=== PATIENT | female | born 1940 | race Caucasian/White ===

== ENCOUNTER 2020-03-05 08:19 | Emergency (ER) | payer MEDICARE, MEDICAID, SELFPAY ==
[2020-03-05 08:29] VITALS: BP 164/61; PULSE 61; TEMP 36.7; O2SAT 98
[2020-03-05 08:40] VITALS: PULSE 61; RESP 16; O2SAT 98; BMI 24.0
--- NOTE | 2020-03-05 09:18 | ED_ITS ---
HPI - General Adult General Chief complaint: General Medical Stated complaint: diabetic feet purplish Time Seen by Provider: 03/05/20 08:34 Source: patient and family Mode of arrival: ambulatory Limitations: language barrier (Icelandic-speaking) History of Present Illness HPI narrative: 79yoF c PMHx of eczema, DM, melanoma and kidney atrophy presenting to the ED c c/o worsening eczema rash to bilateral feet and neck with redness and she is concerned about her circulation. Reports that she has a dermatology appointment on . Denies any other symptom complaints or concerns. Denies any fevers, chills or any injuries. Related Data Previous Rx's Medication Instructions Recorded cephalexin [Keflex] 500 mg PO Q6H 10 Days #40 cap 03/05/20 doxycycline monohydrate 100 mg PO BID 10 Days #20 cap 03/05/20 hydrocortisone 1 appl TOPICAL TID PRN #454 g 03/05/20 prednisone 40 mg PO DAILY 5 Days #10 tab 03/05/20 Allergies Allergy/AdvReac Type Severity Reaction Status Date / Time No Known Allergies Allergy Unverified 12/09/19 15:35 [No Known Allergies*] Review of Systems Review of Systems: Constitutional : No Fever, No Chills , no body aches, no recent illness Head/Face: No facial swelling, No facial redness ENT/Mouth : No oral/throat swelling, No Hoarseness, No Swallowing Difficulty Eyes: No Eye Pain, No Swelling, No Redness Cardiovascular : No Chest Pain, No SOB, No palpitations Respiratory : No Cough, No Sputum, No Wheezing, No Smoke Exposure, No Dyspnea Gastrointestinal : No Nausea, No Vomiting, No Diarrhea, No abdominal Pain Genitourinary : No Dysuria, No Urinary Frequency, No Hematuria Musculoskeletal : No joint pain, No Myalgias, No Joint Swelling Skin : No Skin Lesions, positive rash Neuro : No Weakness, No Numbness, No Headache, No dizziness, No tingling Psych : No Anxiety/Panic, No Depression Heme/Lymph: No Bruising, No Lymphadenopathy Endocrine : No Polyuria, No Polydipsia Denies changes in lotions or detergents. Denies new medications or any changes in medications. Denies drainage from rash. Denies any recent sick contacts or recent travel. Yes all other systems are reviewed and are negative PMFSH Past Medical History Attestation statement: The following information was validated with the patient. Medical History Diabetes Eczema Kidney atrophy Melanoma Social History Social History Advance Directives: No Advance Directives Information Provided: No Physical Exam Vital Signs: Vital Signs: Last Vital Signs Temp 98.1 F 03/05/20 08:29 Pulse 61 03/05/20 08:40 Resp 16 03/05/20 08:40 BP 164/61 H 03/05/20 08:29 Pulse Ox 98 03/05/20 08:40 Body Mass Index 24.0 vital signs have been reviewed as normal and appeared to be correct. Blood pressure normal. Heart rate normal. Respiration rate normal. Temperature normal. Oxygen saturation normal. Appearance: Alert. Oriented X3. No acute distress. Head: Normal external exam. Normocephalic. Atraumatic. Eyes: PERRLA. EOMI. Conjunctiva and sclera normal. Eyelids normal. ENT: Pharynx normal. Uvula midline. Moist mucous membranes. Neck: Normal inspection. Neck supple. FROM. No adenopathy. No meningeal signs. CVS: Normal heart rate and rhythm. Heart sound normal. No murmurs noted. Pulses normal throughout. Respiratory: No respiratory distress. Painless inspiration. Breath sounds normal. No wheezes/rales/rhonchi noted. Chest nontender. No accessory muscle usage noted or decreased air movement noted. Abdomen: Soft and nontender. Bowel sounds normal in all 4 quadrants. No distention noted. No organomegaly noted. No visible injury noted. Back: Full range of motion noted. Skin: Skin warm and dry. Normal skin color. Normal skin turgor. No lesions/lacerations noted. Eczema rash to bilateral dorsum of the feet and to the neck. With moderate erythema no streaking/induration/fluctuance or drainage noted. Extremities: Extremities exhibit normal range of motion. Extremities nontender. Neuro: Oriented X 3. No motor deficit. No sensory deficit. Reflexes normal. Course Course Course Narrative: Patient with worsening eczema rash with possible cellulitis. No signs of streaking or fluctuance noted. Patient has positive pulses on her feet. No calf tenderness or swelling. Not consistent with DVT or vascular or arterial insufficiency. No imaging indicated at this time. Will DC home with antibiotics and topical steroids along with oral steroids. Explained to the patient to not take the oral steroids until she has tried the topical steroids and antibiotics for at least a week and to follow-up with her alteration inspector as scheduled. I also informed this to her daughter who was in the waiting room she understands and agrees with this plan. Will discharge at this time. Medical Decision Making Medical Records Medical records reviewed: Yes I reviewed the patient's medical records. Discharge Plan Discharge Clinical Impression: Eczema, Cellulitis Patient Disposition: Home, Self-Care Instructions: Cellulitis (ED), Eczema (ED) Prescriptions: New doxycycline monohydrate 100 mg capsule 100 mg PO BID 10 Days Qty: 20 RF: 0 cephalexin [Keflex] 500 mg capsule 500 mg PO Q6H 10 Days Qty: 40 RF: 0 hydrocortisone 2.5 % ointment 1 appl topical TID PRN (Reason: Eczema) Qty: 454 RF: 2 prednisone 20 mg tablet 40 mg PO DAILY 5 Days Qty: 10 RF: 0 Referrals: Vic Cortez MD [Primary Care Provider] - 2 days Print Language: Icelandic
== END 2020-03-05 10:00 | disposition home or self-care (01) ==
PROVIDERS: Emergency Provider Emergency Medicine; PCP Internal Medicine
DX: L03.116 Cellulitis of left lower limb (principal); L03.115 Cellulitis of right lower limb; L30.9 Dermatitis, unspecified; Z79.899 Other long term (current) drug therapy
CPT/HCPCS: 99283

== ENCOUNTER 2020-03-13 11:38 | Outpatient (REF) | payer MEDICARE, OTHER, SELFPAY ==
--- NOTE | 2020-03-13 11:44 | MM_ITS ---
EXAMINATION: MM SCREENING DIGITAL BREAST TOMOSYNTHESIS, BILATERAL CLINICAL INFORMATION: Screening. Asymptomatic. The lifetime risk of breast cancer based on the Tyrer-Cuzick Model is 2%. COMPARISON: Mammography: 08/11/2018, 07/22/2017, 07/16/2016 TECHNIQUE: Digital breast tomosynthesis is performed in both the craniocaudal and mediolateral oblique views along with computer-aided detection (CAD). Synthesized 2D images are generated from the tomosynthesis. Additional left MLO view is provided. FINDINGS: There are scattered areas of fibroglandular density (ACR BI-RADS breast composition Category b). There are no significant masses, abnormal calcifications, or other abnormalities. Parenchymal pattern is similar to prior studies. There is no developing density. Axillary nodes are stable. Skin contours are smooth. No significant changes. MM/MM tomosynthesis screening BI IMPRESSION: No significant changes from prior exams. ASSESSMENT: BI-RADS 1: Negative RECOMMENDATION: Routine annual mammography screening. This patient's information was entered into a reminder system with a target due date for their next mammogram.
== END 2020-03-13 11:39 | disposition home or self-care (01) ==
LOC: HO.MAMMO 11:38
PROVIDERS: PCP Internal Medicine; Visit Provider Internal Medicine
DX: Z12.31 Encounter for screening mammogram for malignant neoplasm of breast (principal)
CPT/HCPCS: 77063; 77067

== ENCOUNTER 2021-04-10 08:09 | Outpatient (REF) | payer MEDICARE, OTHER, SELFPAY ==
--- NOTE | ~2021-04-10 | MM_ITS ---
EXAMINATION: MM SCREENING DIGITAL BREAST TOMOSYNTHESIS, BILATERAL CLINICAL INFORMATION: Screening. Asymptomatic. The lifetime risk of breast cancer based on the Tyrer-Cuzick Model is 3%. COMPARISON: Mammography: 03/13/2020, 08/11/2018, 07/22/2017 TECHNIQUE: Digital breast tomosynthesis is performed in both the craniocaudal and mediolateral oblique views along with computer-aided detection (CAD). Synthesized 2D images are generated from the tomosynthesis. FINDINGS: There are scattered areas of fibroglandular density (ACR BI-RADS breast composition Category b). There are no significant masses, abnormal calcifications, or other abnormalities. MM/MM tomosynthesis screening BI IMPRESSION: No mammographic evidence of malignancy. ASSESSMENT: BI-RADS 1: Negative RECOMMENDATION: Routine annual mammography screening. This patient's information was entered into a reminder system with a target due date for their next mammogram.
== END 2021-04-10 08:10 | disposition home or self-care (01) ==
LOC: HO.MAMMO 08:09
PROVIDERS: Visit Provider Internal Medicine
DX: Z12.31 Encounter for screening mammogram for malignant neoplasm of breast (principal)
CPT/HCPCS: 77063; 77067

== ENCOUNTER 2022-04-16 08:10 | Outpatient (REF) | payer MEDICARE, OTHER, SELFPAY ==
--- NOTE | ~2022-04-16 | MM_ITS ---
EXAMINATION: MM SCREENING DIGITAL BREAST TOMOSYNTHESIS, BILATERAL CLINICAL INFORMATION: Screening. Asymptomatic. The lifetime risk of breast cancer based on the Tyrer-Cuzick Model is 3.0%. COMPARISON: Mammography: April 10, 2021 and studies dating back to July 14, 2015 TECHNIQUE: Digital breast tomosynthesis is performed in both the craniocaudal and mediolateral oblique views along with computer-aided detection (CAD). Synthesized 2D images are generated from the tomosynthesis. FINDINGS: The breasts are almost entirely fatty (ACR BI-RADS breast composition Category a). There are no significant masses, abnormal calcifications, or other abnormalities. MM/MM tomosynthesis screening BI IMPRESSION: No significant changes from prior exam. ASSESSMENT: BI-RADS 1: Negative RECOMMENDATION: Routine annual mammography screening. This patient's information was entered into a reminder system with a target due date for their next mammogram.
== END 2022-04-16 08:11 | disposition home or self-care (01) ==
LOC: HO.MAMMO 08:10
PROVIDERS: PCP Internal Medicine; Visit Provider Internal Medicine
DX: Z12.31 Encounter for screening mammogram for malignant neoplasm of breast (principal)
CPT/HCPCS: 77063; 77067

== ENCOUNTER 2022-09-30 06:05 | Outpatient (REF) | payer MEDICARE, OTHER, SELFPAY ==
[2022-09-30 08:13] LABS: Anion Gap 15 (12-20); Blood Urea Nitrogen 26 mg/dL (9-16); Calcium 10.2 mg/dL (8.4-10.2); Carbon Dioxide 27 mmol/L (22-29); Chloride 108 mmol/L (96-108); Estimated Glomerular Filt Rate 45; Glucose Random 152 mg/dL (60-115); Sodium 146 mmol/L (135-145)
== END 2022-09-30 06:06 | disposition home or self-care (01) ==
LOC: HO.LAB 06:05
PROVIDERS: PCP Internal Medicine; Visit Provider Internal Medicine
DX: I10 Essential (primary) hypertension (principal); D63.8 Anemia in other chronic diseases classified elsewhere; E78.00 Pure hypercholesterolemia, unspecified
CPT/HCPCS: 36415; 80048; 80061; 80076; 82607; 82746; 85025

== ENCOUNTER 2022-10-29 08:24 | Outpatient (REF) | payer MEDICARE, OTHER, SELFPAY ==
[2022-10-29 11:27] LABS: MANUAL DIFF FLAG NO
[2022-10-29 11:39] LABS: Basophils Percent Auto 0.6 % (0-2); Eosinophils Absolute Auto 0.2 X10*3/uL (0.0-0.4); Eosinophils Percent Auto 3.2 % (0-4); Hematocrit 37.7 % (37.0-47.0); Hemoglobin 12.3 g/dl (12.0-16.0); Imm Gran Abs Auto 0.01 X10*3/uL (0.00-0.03); Imm Gran Pct Auto 0.2 % (0.0-0.4); Lymphocytes Absolute Auto 1.4 X10*3/uL (1.2-4.9); Lymphocytes Percent Auto 30.2 % (20-40); Mean Corpuscular HGB Conc 32.6 g/dl (31.0-35.0); Mean Corpuscular Hemoglobin 27.6 pg (27.0-33.0); Mean Corpuscular Volume 84.7 fL (80.0-98.0); Mean Platelet Volume 12.2 fL (9.4-12.3); Monocytes Absolute Auto 0.4 X10*3/uL (0.1-1.2); Neutrophils Absolute Auto 2.7 x10*3/uL (2.0-8.3); Neutrophils Percent Auto 57.8 % (45-73); Platelet Count 169 X10*3/uL (160-400); Red Blood Count 4.45 X10*6/uL (4.20-5.50); Red Cell Distribution Width 13.5 % (11.0-16.0); White Blood Count 4.6 X10*3/uL (4.8-10.8)
[2022-10-29 11:44] LABS: Appearance Urine Clear; Color Urine Yellow; Glucose Urine UA >=1000 mg/dL (Negative); Leukocyte Esterase Urine Negative (Negative); Nitrite Urine Negative (Negative); PH 5.5 (5.0-9.0); Specific Gravity - Urine 1.015 (1.005-1.025); UMIC TRIGGER UA YES; Urine Blood Negative (Negative); Urine Ketones Negative (Negative); Urine Protein Negative (Neg-Trace)
[2022-10-29 11:54] LABS: Bacteria Urine None Seen (None Seen); Hyaline Casts Urine 0-2 /LPF (0-2); RBC Urine 0-2 /HPF (0-2); Squamous Epithelial Cell Urine 0-2 /HPF (0-2); WBC Urine 0-5 /HPF (0-5)
[2022-10-29 12:44] LABS: Creatinine Urine 54.59 mg/dL; Microalbum/Creatinine Ratio Ur 47.6 ug/mg cr; Total Protein Urine Random < 7 mg/dL (<12)
[2022-10-29 13:23] LABS: Albumin Level 4.4 g/dL (3.5-5.0); Anion Gap 13 (12-20); Blood Urea Nitrogen 25 mg/dL (9-16); Calcium 10.2 mg/dL (8.4-10.2); Carbon Dioxide 27 mmol/L (22-29); Chloride 105 mmol/L (96-108); Magnesium 2.2 mg/dL (1.6-2.6); Phosphorus 3.7 mg/dL (2.7-4.5); Potassium 5.1 mmol/L (3.3-5.1); Sodium 140 mmol/L (135-145)
[2022-10-29 13:24] LABS: Vitamin D 25-OH Total 50.8 ng/mL (>30)
[2022-10-31 22:09] LABS: Calcium (PTHI) 10.4 mg/dL (8.6-10.4); PTHI 18 pg/mL (16-77)
== END 2022-10-29 08:25 | disposition home or self-care (01) ==
LOC: HO.HHCL 08:24
PROVIDERS: Visit Provider Internal Medicine Nephrology
DX: E11.22 Type 2 diabetes mellitus with diabetic chronic kidney disease (principal); E11.21 Type 2 diabetes mellitus with diabetic nephropathy; N18.31 Chronic kidney disease, stage 3a; R82.90 Unspecified abnormal findings in urine
CPT/HCPCS: 36415; 80051; 81001; 82040; 82043; 82306; 82310; 83735; 83970; 84100; 84156; 84520; 85025; 87086

== ENCOUNTER 2023-04-09 10:50 | Outpatient (AMB) | payer MEDICARE, MEDICAID, SELFPAY ==
[2023-04-09 11:02] VITALS: BMI 19.9
--- NOTE | 2023-04-09 11:02 | A.OFFVIS_ITS ---
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 States her finger is catching and locking. States this started about 2-3 months ago. Patient seen with her PCP who offered injection however patient refused at the time. Currently states her finger has improved locking but still has pain in the mornings and whe using her ipod. 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 She complains of the right ring finger locking and causing her pain. She says this has been present for ~2-3 months now, and is worse in the mornings or when trying to hold objects. She denies any numbness or tingling. She is a Diabetic and says her most recent HgA1c was 6.7% [facility] Medical History Diabetes Eczema Kidney atrophy Melanoma Social History (Updated 04/09/23 @ 11:07 by Jackie Sloan [facility]) Current occupational status: retired and disabled Current occupation: right hand Review of Systems Const All systems reviewed & are unremarkable except as noted in HPI and below Physical Exam Vital Signs: BMI result Body Mass Index 19.9 Const General: cooperative, healthy appearing and no acute distress Orientation/consciousness: patient oriented x3 HEENT Head: Yes normocephalic and Yes atraumatic Eyes EOM: EOMs intact bilaterally Resp Effort & Inspection: normal respiratory effort and able to speak in complete sentences Cardio Jugular venous distension: no JVD Skin General skin exam: turgor normal Rashes: no rashes Neuro General: patient oriented x3 Extrem Other: Evaluation of Right Upper Extremity: The patient is alert, oriented, and in no acute distress Neuro: Median, Ulnar, Radial nerves motor and sensory intact and sensation is normal to the tips of all digits Vascular: Cap refill brisk ROM: She can make a fist and extend all her digits Visible and palpable locking and catching of the right ring finger Tender over the a1 danielle of the ring finger Skin: No lacerations or abrasions. General: No Ecchymosis. No Erythema or evidence of infection. Psych Appearance: grossly normal Affect: normal affect Attitude: cooperative Office Procedures Fracture Care Details: No fracture, injection Fracture Billing Code: Fracture Billing Code Assessment & Plan Assessment & Plan (1) Trigger finger, right ring finger: Code(s): M65.341 - Trigger finger, right ring finger Plan Assessment & Plan: 1. Right ring finger trigger finger I educated her about this condition I discussed operative and non-operative treatment options The patient would like to proceed with an injection Injection #1: The risks and benefits of a steroid injection including but not limited to risk of damage to blood vessels, nerves, tendons, infection, skin bleaching, failure to improve symptoms, increased pain, and possible need for further injections or other intervention were discussed with the patient and the patient wishes to proceed with the steroid injection. Once consent was obtained, I sterilely prepped the area over the A1 danielle of the flexor tendon sheath of the right ring finger. I then injected the flexor tendon sheath with a combination of 1 mL of dexamethasone (4mg/ml), and 1% lidocaine. The patient tolerated the procedure well with no complications. If the patient continues to have locking and catching 4-6 weeks following this injection, they may call to schedule appointment to discuss alternative treatment options Follow-up prn Scribed for Mely Ken MD by Jesus Munroe, ophthalmic medical technician, on 04/09/23 at 11:25 AM, EST. Coding Level of Care Code New Pt Level 3 (96422) Diagnoses Trigger finger, right ring finger M65.341 CPT Codes Fracture Care - Fracture Billing Code: Fracture Billing Code ([id number])
== END 2023-04-09 11:33 | disposition home or self-care (01) ==
PROVIDERS: PCP Internal Medicine; Visit Provider Orthopaedic Surgery
DX: M65.341 Trigger finger, right ring finger (principal)
CPT/HCPCS: 20550; 99203

== ENCOUNTER → 2023-04-09 10:50 | Outpatient (BNVA) | payer MEDICARE, OTHER, SELFPAY | PROVIDERS: PCP Internal Medicine; Visit Provider Orthopaedic Surgery | DX: M65.341 Trigger finger, right ring finger (principal) | CPT/HCPCS: 20550; 99202; J1100 ==

== ENCOUNTER 2023-04-22 08:20 | Outpatient (REF) | payer MEDICARE, MEDICAID, SELFPAY ==
--- NOTE | ~2023-04-22 | MM_ITS ---
EXAMINATION: MM SCREENING DIGITAL BREAST TOMOSYNTHESIS, BILATERAL CLINICAL INFORMATION: Screening. Asymptomatic. COMPARISON: Mammography: This study is compared with prior exams dating back to 2018. TECHNIQUE: Digital breast tomosynthesis is performed in both the craniocaudal and mediolateral oblique views along with computer-aided detection (CAD). Synthesized 2D images are generated from the tomosynthesis. FINDINGS: The breasts are almost entirely fatty (ACR BI-RADS breast composition Category a). There are no significant masses, abnormal calcifications, or other abnormalities. There are few, unchanged, coarse, benign calcifications in the lower inner quadrants of the breasts. MM/MM tomosynthesis screening BI IMPRESSION: No mammographic evidence of malignancy. ASSESSMENT: BI-RADS BI-RADS 2 - Benign Findings RECOMMENDATION: Routine annual mammography screening. 1 year F/U This examination should not preclude the clinical evaluation of a suspicious palpable abnormality. This patient's information was entered into a reminder system with a target due date for their next mammogram.
== END 2023-04-22 08:21 | disposition home or self-care (01) ==
LOC: HO.MAMMO 08:20
PROVIDERS: PCP Internal Medicine; Visit Provider Internal Medicine
DX: Z12.31 Encounter for screening mammogram for malignant neoplasm of breast (principal)
CPT/HCPCS: 77063; 77067

== ENCOUNTER → 2023-04-22 08:45 | Outpatient (BNV) | payer MEDICARE, MEDICAID, SELFPAY | PROVIDERS: PCP Internal Medicine; Visit Provider Radiology Diagnostic Radiology | DX: Z12.31 Encounter for screening mammogram for malignant neoplasm of breast (principal) | CPT/HCPCS: 77063; 77067 ==

== ENCOUNTER 2023-07-08 08:35 | Outpatient (REF) | payer MEDICARE, MEDICAID, SELFPAY ==
[2023-07-08 11:34] LABS: MANUAL DIFF FLAG NO
[2023-07-08 11:51] LABS: Basophils Percent Auto 0.5 % (0-2); Eosinophils Absolute Auto 0.1 X10*3/uL (0.0-0.4); Eosinophils Percent Auto 1.7 % (0-4); Hematocrit 36.4 % (37.0-47.0); Imm Gran Abs Auto 0.03 X10*3/uL (0.00-0.03); Imm Gran Pct Auto 0.4 % (0.0-0.4); Lymphocytes Absolute Auto 1.4 X10*3/uL (1.2-4.9); Mean Corpuscular Hemoglobin 28.3 pg (27.0-33.0); Mean Corpuscular Volume 85.8 fL (80.0-98.0); Mean Platelet Volume 12.6 fL (9.4-12.3); Monocytes Absolute Auto 0.5 X10*3/uL (0.1-1.2); Monocytes Percent Auto 6.2 % (2-11); Neutrophils Percent Auto 74.2 % (45-73); Platelet Count 161 X10*3/uL (160-400); Red Blood Count 4.24 X10*6/uL (4.20-5.50); Red Cell Distribution Width 13.7 % (11.0-16.0); White Blood Count 8.1 X10*3/uL (4.8-10.8)
[2023-07-08 17:39] LABS: Alanine Aminotransferase 23 U/L (0-31); Albumin Level 4.2 g/dL (3.5-5.0); Alkaline Phosphatase 88 U/L (39-117); Anion Gap 13 (12-20); Aspartate Amino Transferase 26 U/L (5-31); Bilirubin Direct 0.3 mg/dL (0.0-0.5); Bilirubin Total 0.7 mg/dL (0.0-1.0); Blood Urea Nitrogen 26 mg/dL (9-16); Calcium 9.6 mg/dL (8.4-10.2); Carbon Dioxide 26 mmol/L (22-29); Chloride 107 mmol/L (96-108); Cholesterol 144 mg/dL (<200); Estimated Glomerular Filt Rate 46; Glucose Random 126 mg/dL (60-115); HDL Cholesterol 50 mg/dL (>40); LDL Cholesterol Calculated 76 mg/dL (<100); Potassium 4.8 mmol/L (3.3-5.1); Sodium 141 mmol/L (135-145); TSH reflex Free T4 1.86 uIU/mL (0.32-4.0); Total Protein 7.3 g/dL (6.5-8.0); Triglycerides 94 mg/dL (<150)
[2023-07-08 17:56] LABS: Reflex LDLD? No
== END 2023-07-08 08:36 | disposition home or self-care (01) ==
LOC: HO.HHCL 08:35
PROVIDERS: Visit Provider Internal Medicine
DX: I10 Essential (primary) hypertension (principal)
CPT/HCPCS: 36415; 80048; 80061; 80076; 84443; 85025

== ENCOUNTER 2023-07-20 15:15 | Outpatient (REF) | payer MEDICARE, MEDICAID, SELFPAY ==
--- NOTE | ~2023-07-20 | MR_ITS ---
EXAMINATION: MR BRAIN WITHOUT CONTRAST CLINICAL INFORMATION: Ataxic gait. COMPARISON: None available. TECHNIQUE: MRI of the brain was obtained using routine sequences without contrast. FINDINGS: Diffusion-weighted images demonstrate no evidence of acute infarcts. Mild diffuse commensurate prominence of the ventricles and sulci is noted. A mild number of scattered subcortical and periventricular white matter subcentimeter T2 hyperintensities are visualized. Susceptibility-weighted images demonstrate no evidence of acute or chronic hemorrhage within the brain parenchyma. The craniocervical junction and cerebellar tonsils are normal in appearance. No suspicious marrow abnormalities are noted. Moderate hyperostosis frontalis interna is present. Normal flow-related signal intensity is identified in the major intracranial vessels and dural sinuses. Bilateral ocular lens replacements are visualized. No significant mucosal thickening or retained secretions within the paranasal sinuses, mastoid air cells and middle ear cavities. MR/MR head/brain wo con IMPRESSION: Mild global parenchymal volume loss of the brain and mild chronic microangiopathic ischemic changes.
== END 2023-07-20 15:16 | disposition home or self-care (01) ==
LOC: HO.MRI 15:15
PROVIDERS: PCP Internal Medicine; Visit Provider Internal Medicine
DX: R26.0 Ataxic gait (principal)
CPT/HCPCS: 70551

== ENCOUNTER 2023-11-11 08:03 | Outpatient (REF) | payer MEDICARE, MEDICAID, SELFPAY ==
[2023-11-11 11:21] LABS: MANUAL DIFF FLAG NO
[2023-11-11 11:23] LABS: Appearance Urine Clear; Color Urine Yellow; Glucose Urine UA >=1000 mg/dL (Negative); Leukocyte Esterase Urine Negative (Negative); Nitrite Urine Negative (Negative); PH 5.5 (5.0-9.0); UMIC TRIGGER UA YES; Urine Blood Negative (Negative); Urine Ketones Trace mg/dL (Negative); Urine Protein Negative (Neg-Trace)
[2023-11-11 11:28] LABS: Basophils Percent Auto 0.8 % (0-2); Eosinophils Absolute Auto 0.1 X10*3/uL (0.0-0.4); Eosinophils Percent Auto 2.2 % (0-4); Hematocrit 35.6 % (37.0-47.0); Imm Gran Abs Auto 0.02 X10*3/uL (0.00-0.03); Imm Gran Pct Auto 0.4 % (0.0-0.4); Lymphocytes Absolute Auto 1.4 X10*3/uL (1.2-4.9); Lymphocytes Percent Auto 28.4 % (20-40); Mean Corpuscular HGB Conc 33.7 g/dl (31.0-35.0); Mean Corpuscular Hemoglobin 28.4 pg (27.0-33.0); Mean Corpuscular Volume 84.4 fL (80.0-98.0); Mean Platelet Volume 12.5 fL (9.4-12.3); Monocytes Absolute Auto 0.3 X10*3/uL (0.1-1.2); Monocytes Percent Auto 6.7 % (2-11); Neutrophils Absolute Auto 3.1 x10*3/uL (2.0-8.3); Neutrophils Percent Auto 61.5 % (45-73); Platelet Count 163 X10*3/uL (160-400); Red Blood Count 4.22 X10*6/uL (4.20-5.50); Red Cell Distribution Width 13.5 % (11.0-16.0)
[2023-11-11 11:30] LABS: Bacteria Urine None Seen (None Seen); Hyaline Casts Urine 0-2 /LPF (0-2); RBC Urine 0-2 /HPF (0-2); Squamous Epithelial Cell Urine 0-2 /HPF (0-2); WBC Urine 0-5 /HPF (0-5)
[2023-11-11 11:57] LABS: Creatinine Urine 66.65 mg/dL; Microalbum/Creatinine Ratio Ur 73.5 ug/mg cr (<30)
[2023-11-11 12:05] LABS: Parathyroid Hormone Intact 41.9 pg/mL (8.7-77.1)
[2023-11-11 12:08] LABS: Albumin Level 4.5 g/dL (3.5-5.0); Calcium 10.2 mg/dL (8.4-10.2); Phosphorus 3.4 mg/dL (2.7-4.5)
[2023-11-11 12:18] LABS: Vitamin D 25-OH Total 49.7 ng/mL (>30)
[2023-11-11 12:41] LABS: Renal w Reflex Lab Use Only Order verified
[2023-11-16 01:34] LABS: Magnesium, RBC 4.9 mg/dL (4.0-6.4)
== END 2023-11-11 08:04 | disposition home or self-care (01) ==
LOC: HO.HHCL 08:03
PROVIDERS: Visit Provider Internal Medicine Nephrology
DX: E11.22 Type 2 diabetes mellitus with diabetic chronic kidney disease (principal); N18.31 Chronic kidney disease, stage 3a
CPT/HCPCS: 36415; 81001; 82040; 82043; 82306; 82310; 82570; 83735; 83970; 84100; 85025

== ENCOUNTER 2023-12-15 14:05 | Outpatient (REF) | payer MEDICARE, MEDICAID, SELFPAY ==
[2023-12-15 14:19] LABS: MANUAL DIFF FLAG NO
[2023-12-15 14:44] LABS: Basophils Absolute Auto 0.1 X10*3/uL (0.0-0.2); Basophils Percent Auto 0.9 % (0-2); Eosinophils Absolute Auto 0.2 X10*3/uL (0.0-0.4); Eosinophils Percent Auto 2.9 % (0-4); Hematocrit 36.8 % (37.0-47.0); Hemoglobin 12.3 g/dl (12.0-16.0); Imm Gran Abs Auto 0.02 X10*3/uL (0.00-0.03); Imm Gran Pct Auto 0.4 % (0.0-0.4); Lymphocytes Absolute Auto 1.7 X10*3/uL (1.2-4.9); Mean Corpuscular HGB Conc 33.4 g/dl (31.0-35.0); Mean Corpuscular Hemoglobin 28.5 pg (27.0-33.0); Mean Corpuscular Volume 85.4 fL (80.0-98.0); Mean Platelet Volume 12.3 fL (9.4-12.3); Monocytes Absolute Auto 0.5 X10*3/uL (0.1-1.2); Monocytes Percent Auto 8.7 % (2-11); Neutrophils Percent Auto 55.1 % (45-73); Platelet Count 180 X10*3/uL (160-400); Red Blood Count 4.31 X10*6/uL (4.20-5.50); Red Cell Distribution Width 13.5 % (11.0-16.0); White Blood Count 5.4 X10*3/uL (4.8-10.8)
[2023-12-15 15:01] LABS: Appearance Urine Clear; Color Urine Yellow; Glucose Urine UA >=1000 mg/dL (Negative); Leukocyte Esterase Urine Negative (Negative); Nitrite Urine Negative (Negative); PH 6.5 (5.0-9.0); Specific Gravity - Urine 1.025 (1.005-1.025); UMIC TRIGGER UA YES; Urine Blood Negative (Negative); Urine Ketones Negative (Negative); Urine Protein Negative (Neg-Trace)
[2023-12-15 15:09] LABS: Bacteria Urine None Seen (None Seen); Hyaline Casts Urine 0-2 /LPF (0-2); RBC Urine 0-2 /HPF (0-2); Squamous Epithelial Cell Urine 0-2 /HPF (0-2); WBC Urine 0-5 /HPF (0-5)
[2023-12-15 15:14] LABS: Albumin Level 4.7 g/dL (3.5-5.0); Anion Gap 13 (12-20); Blood Urea Nitrogen 19 mg/dL (9-16); Carbon Dioxide 28 mmol/L (22-29); Chloride 106 mmol/L (96-108); Estimated Glomerular Filt Rate 46; Magnesium 2.1 mg/dL (1.6-2.6); Phosphorus 3.7 mg/dL (2.7-4.5); Potassium 4.2 mmol/L (3.3-5.1); Sodium 143 mmol/L (135-145)
[2023-12-15 15:15] LABS: Parathyroid Hormone Intact 59.6 pg/mL (8.7-77.1)
[2023-12-15 15:29] LABS: Creatinine Urine 53.46 mg/dL; Microalbum/Creatinine Ratio Ur 91.6 ug/mg cr (<30); Protein/Creatinine Ratio, Ur 0.22 (<0.2); Total Protein Urine Random 12 mg/dL (<12)
[2023-12-15 15:30] LABS: Vitamin D 25-OH Total 52.8 ng/mL (>30)
== END 2023-12-15 14:06 | disposition home or self-care (01) ==
LOC: HO.LAB 14:05
PROVIDERS: PCP Internal Medicine; Visit Provider Internal Medicine Nephrology
DX: N18.31 Chronic kidney disease, stage 3a (principal)
CPT/HCPCS: 36415; 80051; 81001; 81003; 82040; 82043; 82306; 82310; 82565; 82570; 83735; 83970; 84100; 84156; 84520; 85025

== ENCOUNTER → 2024-04-27 08:30 | Outpatient (BNV) | payer MEDICARE, SELFPAY | PROVIDERS: PCP Internal Medicine; Visit Provider Internal Medicine | DX: Z12.31 Encounter for screening mammogram for malignant neoplasm of breast (principal) | CPT/HCPCS: 77063; 77067 ==

== ENCOUNTER 2024-06-22 08:30 | Outpatient (REF) | payer MEDICARE, MEDICAID, OTHER, SELFPAY ==
--- OUTSIDE RECORDS SUMMARY | 2024-06-22 08:46 | XMS_ITS | Encounter Summary ---
Author Organization [employer] Address [address] [facility] [address] [place] [address] Care Team Providers Care Fire Warden Name Role Phone Vic Antonio MD Primary Care Provide r Reason for Visit * Reason Comments Med Refill Encounter Details Date Type Department Care Team ([facility] Contact Info) Description 01/07/2024 Refill [facility] MEDICINE [address] [place] [address] Vic Antonio MD [address] [place] [address] Social History Tobacco Use Types Packs/Day Years Used Date Smoking Tobacco: Never Passive Smoke Exposure: Never Smokeless Tobacco: Never Alcohol Use Standard Drinks/Week Comments Defer 0 (1 standard drink = 0.6 oz pur e alcohol) Alcohol Answer Date Recorded Frequency of Alcohol Consumption Not on file 09/23/2023 Average Number of Drinks Not on file Frequency of Binge Drinking Not on file 04/2023 Score 0 09/23/2023 Depression Answer Date Recorded Patient Health Questionnaire-9 Score 2 07/01/2023 Patient Health Questionnaire-9 Score 2 07/01/2023 Last PHQ-9: Questionnaire Data Not on file 0 07/01/2023 Housing Stability Answer Date Recorded What is your housing situation today? I have george camargo 09/23/[address] you li ve. Do you have problems with any of the following? None of the above 09/23/2023 Food Insecurity Answer Date Recorded Within the past 12 months, y ou worried that your food would run out before you got money to buy more: Never True 09/23/2023 Within the past 12 months,th e food you bought just didn't last and you didn't have enough money to get more: Never True 04/2023 Transportation Answer Date Recorded In the past 12 months, has l ack of transportation kept you from medical appts, meetings, work or from getting things needed for daily living? No 09/23/2023 Utilities Answer Date Recorded In the past 12 months, has t he electric, gas, oil or water company threatened to shut off services in your home? No 09/23/2023 Depression Answer Date Recorded Patient Health Questionnaire-2 Score 1 07/01/2023 Internet Access Answer Date Recorded Internet Access Q1 No 11/24/2023 Internet Access Q2 I do not want or need it 04/2023 Comments Unknown Sex and Gender Information Value Date Recorded Sex Assigned at Female 01/21/2022 10:17 AM EDT Legal Sex Female 10:17 AM EDT Gender Identity Female 01/21/2022 10:17 AM EDT Sexual Orientation Straight 01/21/2022 10 :17 AM EDT documented as of this encounter Plan of Treatment Upcoming Encounters Date Type Department Care Team (Late st Contact Info) Description 07/27/2024 9:00 AM EDT Office Visit [facility] ADULT DENTAL [address] [place] [address] Alvarez Knowles DDS [address] [place] [address] documented as of this encounter Goals Goal Patient Goal Type Associated Problems Recent Progress Patient-Stated? Author Blood Pressure < 140/90 Blood Pressure 138/78(2024 9:07 AM EDT) No Raphael Brewster Hemoglobin A1c < 7.5 Result Component 6.9( 9:04 AM EDT) No Raphael Brewster documented as of this encounter Visit Diagnoses Not on filedocumented in this encounter Additional Health Concerns Assessment Noted Time PHQ-9 Depression Total Score: 2 07/01/19 24 9:54 AM EDT documented as of this encounter Care Teams Fire Warden Relationship Specialty Start Date End Date Vic Antonio MD [address] [place] [address] PCP - General Internal Medicine 11/08/13 documented as of this encounter
--- OUTSIDE RECORDS SUMMARY | 2024-06-22 08:46 | XMS_ITS | Encounter Summary ---
Author Organization [employer] [facility] Address [address] [facility] [address] [place] [address] Care Team Providers Care Eyeletter Name Role Phone Vic Antonio MD Primary Care Provide r Encounter Details Date Type Department Care Team (Latest Contact Info) Description 08/01/2021 Abstract [facility] CONVERSIONS Dental, Provider, DDS Social History Tobacco Use Types Packs/Day Years Used Date Smoking Tobacco: Never Assessed Comments Unknown Sex and Gender Information Value [...] Description 07/27/2024 9:00 AM EDT Office Visit [facility] ADULT DENTAL [address] [place] [address] Alvarez Knowles DDS [address] [place] [address] documented as of this encounter Visit Diagnoses Not on filedocumented in this encounter Care Teams Eyeletter Relationship Specialty Start Date End Date Vic Antonio MD [address] [place] [address] PCP - General Internal Medicine 11/08/13 documented as of this encounter
--- OUTSIDE RECORDS SUMMARY | 2024-06-22 08:46 | XMS_ITS | Encounter Summary ---
Author Organization [facility] Address [address] [facility] [address] [place] [address] Phone Care Team Providers Care Miller Head Wet Process Name Role Phone Unavailable Primary Care Provider Unavailabl e Encounter Details Date Type Department Care Team (Late Contact Info) Description 06/27/2020 Orders Only [facility] [address] [place] [phone] ProviderKianna MD [address] [place] [id number] Social History Tobacco Use Types Packs/Day Years Used Date Smoking Tobacco: Never Alcohol Use Standard Drinks/Week Comments No 0 (1 standard drink = 0.6 oz pur e alcohol) Comments Unknown Sex and Gender Information Value Date Recorded Sex Assigned at Not on file Legal Sex Female 5:14 PM EST Gender Identity Not on file Sexual Orientation Not on file documented as of this encounter Plan of Treatment Upcoming Encounters Date Type Department Care Team (Late st Contact Info) Description 12/20/2024 1:15 PM EDT Office Visit [facility] [address] [place] [phone] Reginaldo Nolan MD [address] [facility] [address] [place] [phone] documented as of this encounter Procedures Procedure Name Priority Date/Time Associated Diagnosis Comments EXT RESULT ENTRY Routine 06/22/2020 documented in this encounter Results * EXT RESULT ENTRY (06/22/2020) Historical Provider LAB BLOOD ORDERABLES Josseline l Result documented in this encounter Visit Diagnoses Not on filedocumented in this encounter
--- OUTSIDE RECORDS SUMMARY | 2024-06-22 08:46 | XMS_ITS | Encounter Summary ---
Author Organization [employer] [facility] Address [address] [facility] [address] [place] [address] Care Team Providers Care Lead Quality Technician Name Role Phone Vic Antonio MD Primary Care Provide r Encounter Details Date Type Department Care Team (Late Contact Info) Description 09/18/2022 Orders Only [facility] [address] [place], [place] [phone] Crystal Bryant LPN Social History Tobacco Use Types Packs/Day Years Used Date Smoking Tobacco: Never Passive Smoke Exposure: Never Smokeless Tobacco: Never Depression Answer Date Recorded Patient Health Questionnaire-9 Score 0 2022 Depression Answer Date Recorded Patient Health Questionnaire-2 Score 0 2022 Comments Unknown Sex and Gender Information Value Date Recorded Sex Assigned at Female 01/21/2022 10:17 AM EDT Legal Sex Female 10:17 AM EDT Gender Identity Female 01/21/2022 10:17 AM EDT Sexual Orientation Straight 01/21/2022 10 :17 AM EDT COVID-19 Exposure Response Date Recorded In the last 10 days, have yo u been in contact with someone who was confirmed or suspected to have Coronavirus/COVID-19? Unable to assess 09/20/2022 1:27 PM EDT documented as of this encounter Plan of Treatment Upcoming Encounters Date Type Department Care Team (Late Contact Info) Description 07/27/2024 9:00 AM EDT Office Visit [facility] ADULT DENTAL [address] [place] [address] Alvarez Knowles DDS [address] [place], [place] [phone] documented as of this encounter Visit Diagnoses Not on filedocumented in this encounter Additional Health Concerns Assessment Noted Time PHQ-9 Depression Total Score: 0 09/18/19 23 9:58 AM EDT documented as of this encounter Care Teams Lead Quality Technician Relationship Specialty Start Date End Date Vic Antonio MD [address] [place] [address] PCP - General Internal Medicine 11/08/13 documented as of this encounter
--- OUTSIDE RECORDS SUMMARY | 2024-06-22 08:46 | XMS_ITS | Encounter Summary ---
Author Organization [facility] Address [address] [place] [address] Care Team Providers Care Pin Puller Name Role Phone Vic Antonio MD Primary Care Provide r Encounter Details Date Type Department Care Team (Late st Contact Info) Description 08/13/2022 Orders Only [facility] [address] [place] [address] Crystal Bryant LPN Social History Tobacco Use [...] Description 07/27/2024 9:00 AM EDT Office Visit [facility] ADULT DENTAL [address] [place] [address] Alvarez Knowles DDS [address] [place] [address] documented as of this encounter Visit Diagnoses Not on filedocumented in this encounter Care Teams Pin Puller Relationship Specialty Start Date End Date Vic Antonio MD [address] [place] [address] PCP - General Internal Medicine 11/08/13 documented as of this encounter
--- OUTSIDE RECORDS SUMMARY | 2024-06-22 08:46 | XMS_ITS | Encounter Summary ---
Author Organization [employer] Address [address] [place] [address] Care Team Providers Care Building Architectural Designer Name Role Phone Vic Antonio MD Primary Care Provide r Reason for Visit * Reason Comments Med Refill Encounter Details Date Type Department Care Team ([facility] Contact Info) Description 05/29/2023 Refill [facility] MEDICINE [address] [place], [place] [phone] Vic Antonio MD [address] [place], [place] [id number] Social History Tobacco Use Types Packs/Day Years Used Date Smoking Tobacco: Never Passive Smoke Exposure: Never Smokeless Tobacco: Never Depression Answer Date Recorded Patient Health Questionnaire-9 Score 0 2022 Housing Stability Answer Date Recorded What is your housing situation today? I have georgeyanna camargo 01/08/[address] you li ve. Do you have problems with any of the following? None of the above 01/08/2023 Food Insecurity Answer Date Recorded Within the past 12 months, y ou worried that your food would run out before you got money to buy more: Never True 01/08/2023 Within the past 12 months,th e food you bought just didn't last and you didn't have enough money to get more: Never True Transportation Answer Date Recorded In the past 12 months, has l ack of transportation kept you from medical appts, meetings, work or from getting things needed for daily living? No 01/08/2023 Utilities Answer Date Recorded In the past 12 months, has t he electric, gas, oil or water company threatened to shut off services in your home? No 01/08/2023 Depression Answer Date Recorded Patient Health Questionnaire-2 [...] Description 07/27/2024 9:00 AM EDT Office Visit [facility] ADULT DENTAL [address] [place] [address] Alvarez Knowles DDS [address] [place] [address] documented as of this encounter Visit Diagnoses Not on filedocumented in this encounter Additional Health Concerns Assessment Noted Time PHQ-9 Depression Total Score: 0 09/18/19 23 9:58 AM EDT documented as of this encounter Care Teams Building Architectural Designer Relationship Specialty Start Date End Date Vic Antonio MD [address] [place] [address] PCP - General Internal Medicine 11/08/13 documented as of this encounter
--- OUTSIDE RECORDS SUMMARY | 2024-06-22 08:46 | XMS_ITS | Clinical Summary ---
Author Organization [facility] Address [address] [address] Phone Care Team Providers Care Soda Column Operator Name Role Phone Unavailable Primary Care Provider Unavailabl e Allergies Active Allergy Reactions Criticality Noted Date Comments Pneumococcal Vaccine Swelling 10/02/2015 Medications amLODIPine (NORVASC) 10 MG tablet Take 1 tablet by mouth 1 (one) time each day Active atenolol (TENORMIN) 50 MG tablet Take 1 tablet by mouth 1 (one) time each day Active lisinopril (PRINIVIL,ZEST RIL) 40 MG tablet Take 1 tablet by mouth 1 (one) time each day Active atorvastatin (LIPITOR) 40 MG tablet Take 40 mg by mouth 1 (one) time each day Active Jardiance 25 MG tablet Take by mouth 2 Active aspirin (ST RUDY) 81 MG EC tablet Take 81 mg by mouth 1 (one) time each day Active ergocalciferol 1.25 MG (26441 UT) capsule TAKE 1 CAPSULE BY MOUTH EVERY MONTH 3 capsule 1 5 Active ergocalciferol 1.25 MG (04055 UT) capsule Take 1 capsule (50,000 Units total) by mouth every 30 (thirty) days 3 capsule 1 4 06/01/19 25 Discontinued Active Problems Problem Noted Date Diagnosed Date Patient encounter status 2022 023 Overview (12/09/2022): Last Assessment & Plan: Mammogram: done 04/16/2022 Normal Pap Smear: 2007 Negative, given age no need to continue Colonoscopy: 03/03/[address] Cordoba was wnl. Repeat by Amor Arriaga 07/2020 showed some polyps none of them were TAs Disorder of pancreas 2022 12/09/2022 Overview (12/09/2022): Last Assessment & Plan: Pt here for a f/u Ct of abdomen showed Mild dilatation of the main pancreatic duct. 2 cysts or cystic lesions in the head of the pancreas. Follow-up MR with MRCP recommended. MRi done 02/24/2019 showed: Innumerable small cysts in the pancreas abutting the main pancreatic duct. There is slight beading of the main pancreatic duct. 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 Cystic pancreatic neoplasm such as sidebranch IPMN cannot be excluded and imaging follow-up in 1 year is recommended. Small dependent low-attenuation material in the gallbladder questionable for sludge or small stones. Diverticulosis of the colon. Pt was seen by GI specialist Dr. Mendez 03/01/2019 He did not think any of the cysts were amenable to FNA and advised against f/u given her age. Actinic keratosis 2022 12/09/2022 Overview (12/09/2022): Last Assessment & Plan: Under the care of Dr Vega. Seen in May 2022 Shoulder pain 09/12/2022 12/09/2022 H/O: Disorder 11/30/2021 Gastroesophageal reflux disease 11/30/2021 Epigastric pain 11/30/2021 Dysphagia 11/30/2021 Stage 3a chronic kidney disease 05/28/2021 Renal osteodystrophy 05/28/2021 Stage 3a chronic kidney disease 07/03/2020 Hypertensive chronic kidney disease 07/03/2020 Type 2 diabetes mellitus wit h diabetic chronic kidney disease 07/03/2020 Chronic kidney disease stage 3 07/02/2020 Hypertensive renal disease 07/02/2020 Renal disorder due to type 2 diabetes mellitus 0 07/02/2020 Type 2 diabetes mellitus 08/17/2013 Cervicalgia 07/02/2013 Overview (07/02/2020): MRI 10/10/2009: diffuse osteoarthritic changes, mild bilateral neuroforaminal narrowing at C2-C3 and C3-C4 Cervicalgia 07/02/2013 Overview (07/02/2020): MRI 10/10/2009: diffuse osteoarthritic changes, mild bilateral neuroforaminal narrowing at C2-C3 and C3-C4 Chronic kidney disease 05/19/2013 Overview (07/02/2020): Sees Dr. Nolan Heartburn 05/19/2013 Hyperlipidemia 05/19/2013 Overview (07/02/2020): IMO update Vitamin D deficiency 05/19/2013 Chronic kidney disease 05/19/2013 Overview (07/02/2020): Sees Dr. Nolan Hyperlipidemia 05/19/2013 Overview (07/02/2020): IMO update Aortic valve disorder 04/14/2012 Overview (07/02/2020): 02/01 echo revealed normal LVSF EF 60-65%, mild aortic regurgitation, mild mitral and tricuspid regurgitation Aortic valve disorder 04/14/2012 Overview (07/02/2020): 02/01 echo revealed normal LVSF EF 60-65%, mild aortic regurgitation, mild mitral and tricuspid regurgitation Hypertensive disorder 02/22/2008 Anemia 02/22/2008 Overview (07/02/2020): B-12 defic, on replacement but no improve in hct Nutritional anemia 02/22/2008 Anemia 02/22/2008 Overview (07/02/2020): B-12 defic, on replacement but no improve in hct Cobalamin deficiency 11/01/2005 12/09/2022 Encounters Date Type Department Care Team Description 05/31/2024 Refill [facility] [address] [place] [address] Reginaldo Nolan MD from Last 3 Months Immunizations Name Administration Dates Next Due Influenza (IM) Preservative Free 11/29/2014 Influenza Split 01/28/2012 Influenza Split High Dose Pr eservative Free IM 12/14/2015 Influenza Vaccine, Quadrivalent, Adjuvanted 06/2019 Influenza, Quadrivalent, Preservative Free 01/02,12/28/2014 Influenza, Trivalent, Adjuvanted 01/06/2018 Influenza, Unspecified 01/02/2022,12/28/2020 Pneumococcal Conjugate 13-Valent 09/12/2015 Pneumococcal Polysaccharide 05/19/2013, 4,06/26/2005 Td 06/26/2005 Tdap 05/19/2013 Zoster 12/15/2014 Family History Medical History Relation Comments Hypertension Father Hypertension Mother Cancer Sibling Relation Status Comments Father Mother Sibling Social History Tobacco Use Types Packs/Day Years Used Date Smoking Tobacco: Never Alcohol Use Standard Drinks/Week Comments No 0 (1 standard drink = 0.6 oz pur e alcohol) Comments Unknown Sex and Gender Information Value Date Recorded Sex Assigned at Not on file Legal Sex Female 5:14 PM EST Gender Identity Not on file Sexual Orientation Not on file Last Filed Vital Signs Vital Sign Reading Time Taken Comments Blood Pressure 119/59 12/15/2023 1:36 PM EDT Pulse 60 12/15/2023 1:36 PM EDT Temperature - - Respiratory Rate - - Oxygen Saturation 99% 12/15/2023 1:36 PM EDT Inhaled Oxygen Concentration - - Weight 45.8 kg (101 lb) 12/15/2023 1:36 PM EDT Height 154.9 cm (5' 1 ) 10/05/2018 12:00 PM EDT Body Mass Index 19.08 10/05/2018 12:00 PM EDT Plan of Treatment Upcoming Encounters Date Type Department Care Team (Late st Contact Info) Description 12/20/2024 1:15 PM EDT Office Visit [facility] [address] [place] [address] Reginaldo Nolan MD [address] [facility] [address] [place] [address] Health Maintenance Due Date Last Done Comments Diabetes: Ophthalmology Exam 04/21/2020 Diabetes: Pedal Pulse Checked 04/21/2020 Diabetes: Sensory Foot Exam 04/21/2020 Diabetes: Visual Foot Exam 04/21/2020 Diabetes: Hemoglobin A1C 04/28/2024 024, 09/23/2023, 2022 Pneumococcal Vaccine: 65+ Years Completed 09/12/2015, 05/19/2013, 05/06/2013, Additional history exists Influenza Vaccine Completed 01/27/2024, , 12/28/2020, Additional history exists Hepatitis B Vaccine Aged Out No longe r eligible based on patient's age to complete this topic Insurance [place]
--- OUTSIDE RECORDS SUMMARY | 2024-06-22 08:46 | XMS_ITS | Clinical Summary ---
Author Organization [employer] Address [address] [facility] [address] [place] [address] Care Team Providers Care Bakery Worker Name Role Phone Vic Antonio MD Primary Care Provide r Allergies Active Allergy Reactions Criticality Noted Date Comments Pneumococcal Vaccine Swelling 10/02/2015 Medications aspirin 81 MG EC tablet Take 1 tablet by mouth once daily 5 Active Blood Glucose Monitoring Suppl (Hotelscan Duff Lite) w/Device kit USE TO TEST BLOOD SUGAR ONCE DAILY 2 Active Multiple Vitamins-Minerals (Centrum Silver 50+Women) tablet Take 1 tablet by mouth at bed time. Active Blood Pressure Monitoring (Blood Pressure Cuff) miscIndications:Es sential hypertension 1 kit 2 times daily. 1 each 3 Active Oyster Shell Calcium 500 MG tablet TAKE 1 TABLET BY MOUTH TWICE DAILY IN THE MORNING AND IN THE EVENING 180 tablet 3 4 Active lisinopril 40 MG tablet TAKE 1 TABLET BY MOUTH AT BEDTIME 90 tablet 3 4 Active atenolol (Tenormin) 50 MG tablet TAKE 1 TABLET BY MOUTH EVERY MORNING 90 tablet 3 4 Active amLODIPine (Norvasc) 10 MG tablet TAKE 1 TABLET BY MOUTH EVERY MORNING 90 tablet 3 4 Active atorvastatin (Lipitor) 40 MG tablet TAKE 1 TABLET BY MOUTH AT BEDTIME 90 tablet 3 4 Active cyanocobalamin (Vitamin B-12) 1000 MCG tabletIndications: Anemia of chronic disorder TAKE 1 TABLET BY MOUTH EVERY MORNING 90 tablet 3 4 Active empagliflozin (Jardiance) 25 MG TAKE 1 TABLET BY MOUTH EVERY MORNING 90 tablet 3 4 Active glucose blood (FREESTYLE LITE) test stripIndications:T ype 2 diabetes mellitus without complications ([facility]/HCC) USE DIRECTED TO TEST BLOOD SUGAR ONCE DAILY 100 each 11 4 Active TRUEplus Lancets 33G miscIndications:Ty pe 2 diabetes mellitus without complications (CMS/HCC) USE DIRECTED TO TEST BLOOD SUGAR ONCE DAILY 100 each 11 4 Active melatonin 5 MG tabletIndications: Primary insomnia Take 1 tablet (5 mg) by mouth if needed at bedtime (insomnia). 30 tablet 6 5 Active Active Problems Problem Noted Date Diagnosed Date Insomnia 06/03/2024 Assessment & Plan (06/03/2024 9:03 AM EDT): Discussed good sleep hygiene sleeping habits Trial of melatonin Periodontal disease 11/26/2023 Dental abscess 08/29/2023 Open fracture of tooth 08/29/2023 Ataxic gait 07/01/2023 Assessment & Plan (09/23/2023 11:06 AM EDT): Patient with c/o ataxic gait for a long time On exam pt leaning towards the left. Improved MRI of brain 06/2023 IMPRESSION: Mild global parenchymal volume loss of the brain and mild chronic microangiopathic ischemic changes. Assessment & Plan (07/01/2023 10:02 AM EDT): Patient with c/o ataxic gait for a long time On exam pt leaning towards the left Plan: Obtain MRI of brain Trigger finger of right hand 02/11/2023 Assessment & Plan (06/03/2024 8:59 AM EDT): Previously referred to Dr guaman Assessment & Plan (02/11/2023 10:53 AM EST): Will refer to Dr guaman Preventative health care 2022 Assessment & Plan (06/03/2024 9:01 AM EDT): Mammogram: done 04/27/2024 Normal Pap Smear: 2007 Negative, given age no need to continue Colonoscopy: 03/03/[address] Cordoba was wnl. Repeat by Amor Arriaga 07/2020 showed some polyps none of them were TAs Assessment & Plan (09/23/2023 11:06 AM EDT): Mammogram: done 04/22/2023 Normal Pap Smear: 2007 Negative, given age no need to continue Colonoscopy: 03/03/[address] Cordoba was wnl. Repeat by Amor Arriaga 07/2020 showed some polyps none of them were TAs Assessment & Plan (07/01/2023 9:47 AM EDT): Mammogram: done 04/22/2023 Normal Pap Smear: 2007 Negative, given age no need to continue Colonoscopy: 03/03/[address] Cordoba was wnl. Repeat by Amor Arriaga 07/2020 showed some polyps none of them were TAs Assessment & Plan (2022 9:50 AM EDT): Mammogram: done 04/16/2022 Normal Pap Smear: 2007 Negative, given age no need to continue Colonoscopy: 03/03/[address] Cordoba was wnl. 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 Las note from [facility] from November 2023 Assessment & Plan (10/10/2023 10:20 AM EDT): New one on right forearm, see above. Fu with Dr Duran in 2w Assessment & Plan (02/11/2023 10:50 AM EST): Under the care of Dr Vega. Seen in November 2022 and has a follow up in October 2023 Assessment & Plan (2022 10:03 AM EDT): Under the care of Dr Vega. Seen in May 2022 Pancreatic lesion 2022 Assessment & Plan (06/03/2024 8:57 AM EDT): Pt here for a f/u Ct of [...] and advised against f/u given her age. Assessment & Plan (2022 9:49 AM EDT): Pt here for a f/u Ct of [...] and advised against f/u given her age. 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 Most recent Lytes done on Lab Results Component Value Date NA 141 07/08/2023 NA 146 (H) 09/30/2022 K 4.8 07/08/2023 K 4.0 09/30/2022 CL 107 07/08/2023 CL 108 09/30/2022 BUN 26 (H) 07/08/2023 BUN 26 (H) 09/30/2022 CREATININE 1.14 07/08/2023 CREATININE 1.16 09/30/2022 were wnl. Will repeat EKG 12/21/10 showed some inverted T waves in the septal leads for which she was seen by child development specialist Dr Almeida who did an echocardiogram and recommended no further cardiac work up. CXRAY 08/15/06 wnl. Discussed with pt need to be compliant with medical regimen, 4 month f/u Assessment & Plan (01/27/2024 10:59 AM EST): Here for a f/u BP Controlled She is on a regimen of: Lisinopril 40 mg po daily, Norvasc 10 mg po daily Atenolol 50 mg po daily. Most recent Lytes done on 07/08/2023 were wnl. EKG 12/21/10 showed some inverted T waves in the septal leads for which she was seen by child development specialist Dr Almeida who did an echocardiogram and recommended no further cardiac work up. CXRAY 08/15/06 wnl. Discussed with pt need to be compliant with medical regimen, 4 month f/u Assessment & Plan (09/23/2023 10:57 AM EDT): Here for a f/u BP Controlled She is on a regimen of: Lisinopril 40 mg po daily, Norvasc 10 mg po daily Atenolol 50 mg po daily. Most recent Lytes done on 07/08/2023 were wnl. EKG 12/21/10 showed some inverted T waves in the septal leads for which she was seen by child development specialist Dr Almeida who did an echocardiogram and recommended no further cardiac work up. CXRAY 08/15/06 wnl. Discussed with pt need to be compliant with medical regimen, 4 month f/u Assessment & Plan (07/01/2023 10:00 AM EDT): Here for a f/u BP Controlled She is on a regimen of: Lisinopril 40 mg po daily, Norvasc 10 mg po daily Atenolol 50 mg po daily. Most recent Lytes done on 09/30/2022 were wnl. Today will order a repeat BMP EKG 12/21/10 showed some inverted T waves in the septal leads for which she was seen by child development specialist Dr Almeida who did an echocardiogram and recommended no further cardiac work up. CXRAY 08/15/06 wnl. Discussed with pt need to be compliant with medical regimen, 4 month f/u Assessment & Plan (02/11/2023 10:40 AM EST): Here for a f/u BP Controlled She is on a regimen of: Lisinopril 40 mg po daily, Norvasc 10 mg po daily Atenolol 50 mg po daily. Most recent Lytes done on 09/30/2022 were wnl. EKG 12/21/10 showed some inverted T waves in the septal leads for which she was seen by child development specialist Dr Almeida who did an echocardiogram and recommended no further cardiac work up. CXRAY 08/15/06 wnl. Discussed with pt need to be compliant with medical regimen, 4 month f/u Assessment & Plan (2022 9:45 AM EDT): Here for a f/u BP Controlled She is on a regimen of: Lisinopril 40 mg po daily, Norvasc 10 mg po daily Atenolol 50 mg po daily. Most recent Lytes done on 07/24/2021 were wnl. Will repeat EKG 12/21/10 showed some inverted T waves in the septal leads for which she was seen by child development specialist Dr Almeida who did an echocardiogram and recommended no further cardiac work up. CXRAY 08/15/06 wnl. Discussed with pt need to be compliant with medical regimen, 4 month f/u Type 2 diabetes mellitus wit h stage 3a chronic kidney disease, without long-term current use of insulin 02/28/2015 Assessment & Plan (06/03/2024 9:04 AM EDT): Pt here for a f/u DM controlled On a regimen of: Jardiance 25 mg po daily Eye Technician instructed to stop Glipizide, cannot use Metformin due to CKD. Hgb A1c on 06/03/2024 : 6.9 from 6.7 Eye exam by [facility], last note 01/27/2024 Microalbumin 03/2022 was 25, will order Foot check risk of zero . Reports compliance with Asa 81 mg po daily. Pt counseled and educated about the need of adequate blood sugar control. Plan: continue current regimen Adhere to diabetic diet check your blood sugars regularly check your feet on a daily basis Adhere to diabetic diet 4 month follow up Assessment & Plan (01/27/2024 11:05 AM EST): Pt here for a f/u DM controlled On a regimen of: Jardiance 25 mg po daily Eye Technician instructed to stop Glipizide, cannot use Metformin due to CKD. Hgb A1c on 01/27/2024: 6.[address] Chavez 03/31/2019 Microalbumin 03/2022 was 25 Foot check risk of zero . Reports compliance with Asa 81 mg po daily. Pt counseled and educated about the need of adequate blood sugar control. Plan: continue current regimen Adhere to diabetic diet check your blood sugars regularly check your feet on a daily basis Adhere to diabetic diet 4 month follow up Assessment & Plan (09/23/2023 11:05 AM EDT): Pt here for a f/u Pt reports her BG has been ok average 105 On a regimen of: Jardiance 25 mg po daily Eye Technician instructed to stop Glipizide, cannot use Metformin due to CKD. Hgb A1c on 09/23/2023: [address] Chavez 03/31/2019 Microalbumin 03/2022 was 25 Foot check risk of zero . Reports compliance with Asa 81 mg po daily. Pt counseled and educated about the need of adequate blood sugar control. Plan: continue current regimen Adhere to diabetic diet check your blood sugars regularly check your feet on a daily basis Adhere to diabetic diet 4 month follow up Assessment & Plan (07/01/2023 9:58 AM EDT): Pt here for a f/u Pt reports her BG has been ok average 111 On a regimen of: Jardiance 25 mg po daily Eye Technician instructed to stop Glipizide, cannot use Metformin due to CKD. Hgb A1c on 07/01/[address]23 [address] Chavez 03/31/2019 Microalbumin 01/02/2021 was 2.7, will repeat Foot check risk of zero . Reports compliance with Asa 81 mg po daily. Pt counseled and educated about the need of adequate blood sugar control. Plan: continue current regimen Adhere to diabetic diet check your blood sugars regularly check your feet on a daily basis Adhere to diabetic diet Assessment & Plan (02/11/2023 10:41 AM EST): Pt here for a f/u Pt reports her BG has been ok average 102 On a regimen of: Jardiance 25 mg po daily Eye Technician instructed to stop Glipizide, cannot use Metformin due to CKD. Hgb A1c on 02/11/2023: 6.[address] Chavez 03/31/2019 Microalbumin 01/02/2021 was 2.7, will repeat Foot check risk of zero . Reports compliance with Asa 81 mg po daily. Pt counseled and educated about the need of adequate blood sugar control. Plan: continue current regimen Adhere to diabetic diet check your blood sugars regularly check your feet on a daily basis Adhere to diabetic diet Assessment & Plan (2022 10:02 AM EDT): Pt here for a f/u Pt reports her BG has been ok average 111 On a regimen of: Jardiance 25 mg po daily Eye Technician instructed to stop Glipizide, cannot use Metformin due to CKD. Hgb A1c on 2022: 6.[address] Chavez 03/31/2019 Microalbumin 01/02/2021 was 2.7, will repeat Foot check risk of zero . Reports compliance with Asa 81 mg po daily. Pt counseled and educated about the need of adequate blood sugar control. Plan: continue current regimen Adhere to diabetic diet check your blood sugars regularly check your feet on a daily basis Adhere to diabetic diet Cervicalgia 07/02/2013 Overview (09/20/2022): MRI 10/10/2009: diffuse osteoarthritic changes, mild bilateral neuroforaminal narrowing at C2-C3 and C3-C4 MRI 10/10/2009: diffuse osteoarthritic changes, mild bilateral neuroforaminal narrowing at C2-C3 and C3-C4 MRI 10/10/2009: diffuse osteoarthritic changes, mild bilateral neuroforaminal narrowing at C2-C3 and C3-C4 Vitamin D deficiency 05/19/2013 Aortic valve disorder 04/14/2012 Overview (09/20/2022): 02/01 echo revealed normal LVSF EF 60-65%, mild aortic regurgitation, mild mitral and tricuspid regurgitation 02/01 echo revealed normal LVSF EF 60-65%, mild aortic regurgitation, mild mitral and tricuspid regurgitation 02/01 echo revealed normal LVSF EF 60-65%, mild aortic regurgitation, mild mitral and tricuspid regurgitation Chronic kidney disease, stage III (moderate) 03/2011 Assessment & Plan (06/03/2024 8:58 AM EDT): Under the care of Nephrology, last seen 11/25/2023 Dr Nolan, recommended 1 yr follow up Assessment & Plan (02/11/2023 10:51 AM EST): Under the care of Nephrology, last seen 12/09/2022 Assessment & Plan (2022 9:46 AM EDT): Under the care of Nephrology Anemia of chronic disorder 08/14/2011 Assessment & Plan (02/11/2023 10:43 AM EST): Pt with chronic anemia and B12 deficiency anemia thought to be of chronic disease. Under the care of patient financial specialist Dr Estrada, anemia seems multifactorial due to her chronic renal insufficiency as well as Hx of Vitamin b 12 deficiency. Of note colonoscopy 03/03/[address] Cordoba was wnl.. EGD was also wnl. Pt was last seen by Dr Estrada in 03/21/2011. Repeat b 12 level borderline, pt was restarted in supplementation Assessment & Plan (2022 9:48 AM EDT): Pt with chronic anemia and B12 deficiency anemia thought to be of chronic disease. Under the care of patient financial specialist Dr Estrada, anemia seems multifactorial due to her chronic renal insufficiency as well as Hx of Vitamin b 12 deficiency. Of note colonoscopy 03/03/[address] Cordoba was wnl.. EGD was also wnl. Pt was last seen by Dr Estrada in 03/21/2011. Repeat b 12 level was low, pt was restarted in supplementation Hypercholesterolemia 08/14/2011 Assessment & Plan (06/03/2024 9:01 AM EDT): Here for a f/u She has elevated lipids. Most recent lipid profile from: 07/08/2023 Lab Results Component Value Date TRIG 94 07/08/2023 TRIG 166 09/30/2022 CHOL 144 07/08/2023 CHOL 151 09/30/2022 LDLCHOLCAL 76 07/08/2023 LDLCHOLCAL 75 09/30/2022 HDL 50 07/08/2023 HDL 43 09/30/2022 Currently on a regimen of: Atorvastatin 40mg po qhs . Lipids on target. Will repeat Plan: Continue Atorvastatin 40 mg po qhs. advised to try to adhere to a low cholesterol diet, counseled and educated about diet and exercise Assessment & Plan (09/23/2023 10:59 AM EDT): Here for a f/u She has elevated lipids. Most recent lipid profile from: 07/08/2023 Lab Results Component Value Date TRIG 94 07/08/2023 TRIG 166 09/30/2022 CHOL 144 07/08/2023 CHOL 151 09/30/2022 LDLCHOLCAL 76 07/08/2023 LDLCHOLCAL 75 09/30/2022 HDL 50 07/08/2023 HDL 43 09/30/2022 Currently on a regimen of: Atorvastatin 40mg po qhs . Lipids on target. Plan: Continue Atorvastatin 40 mg po qhs. advised to try to adhere to a low cholesterol diet, counseled and educated about diet and exercise Assessment & Plan (02/11/2023 10:42 AM EST): Here for a f/u She has elevated lipids. Most recent lipid profile from: 09/30/2022 shows Component Ref Range & Units 4 mo ago 1 yr ago 2 yr ago 3 yr ago Triglycerides mg/dL 166 187??High?? R 176??High?? R 167??High?? R Comment: Desirable Triglyceride: ? less than 150 mg/dLBorderline High Triglyceride ??150-199 mg/dLHigh Triglyceride: ?200-499 mg/dLVery High Triglyceride: ? greater than or equal to ?5OO mg/dL Cholesterol mg/dL 151 Comment: Desirable Cholesterol: ?less than 200 mg/dLBorderline High Cholesterol: ??200-239 mg/dLHigh Cholesterol: ? greater than 239 mg/dL LDL Cholesterol Calculated mg/dl 75 Comment: Desirable LDL: ? less than 100 mg/dLNear Optimal/Above Optimal LDL: ??110-129 mg/dLBorderline High LDL: ? 130-159 mg/dLHigh LDL: ?160-189 mg/dLVery High LDL: ? greater than or equal to ? 190 mg/dL HDL Cholesterol mg/dL 43 50 R 43??Low?? R 48??Low?? R Currently on a regimen of: Atorvastatin 40mg po qhs . Lipids on target. Plan: Continue Atorvastatin 40 mg po qhs. advised to try to adhere to a low cholesterol diet, counseled and educated about diet and exercise Assessment & Plan (2022 9:45 AM EDT): Here for a f/u She has elevated lipids. Most recent lipid profile from: 11/13/2021 shows a total cholesterol of: 145 triglycerides of: 187 HDL of: 50 and LDL of: 69 Currently on a regimen of: Atorvastatin 40mg po qhs . Lipids on target. Plan: Continue Atorvastatin 40 mg po qhs. Repeat Lipid profile advised to try to adhere to a low cholesterol diet, counseled and educated about diet and exercise Cobalamin deficiency 11/01/2005 Assessment & Plan (06/03/2024 9:00 AM EDT): On supplementation Assessment & Plan (02/11/2023 10:51 AM EST): On supplementation Resolved Problems Problem Noted Date Diagnosed Date Resolved Date Cellulitis of right upper extremity 10/10/2023 06/03/2024 Overview (10/10/2023): Over actinic keratosis lesion of right forearm rx Duricef x 1w, avoid pocking on the area, keep it clean and dry Fu with Dr. Duran Assessment & Plan (10/10/2023 10:21 AM EDT): Over actinic keratosis lesion of right forearm rx Duricef x 1w, avoid pocking on the area, keep it clean and dry Fu with Dr. Duran Shoulder pain 09/12/2022 06/03/2024 Gastritis 03/24/1957 06/03/2024 Encounters Date Type Department Care Team Description 06/03/2024 9:15 AM EDT Office Visit [facility] [address] [place] [phone] Vic Antonio MD Type 2 diabetes mellitus with stage 3a chronic kidney disease, without long-term current use of insulin (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; Hypercholesterolemia ; Primary insomnia; Stage 3a chronic kidney disease (CMS/HCC); Diabetic nephropathy associated with type 2 diabetes mellitus (CMS/HCC); Pancreatic lesion; Trigger ring finger of right hand; Cobalamin deficiency; Preventative health care 06/03/2024 Travel 05/24/2024 Patient Outreach [facility] [address] [place] [phone] Vic Antonio MD Pre-visit Planning (SDOH Screening negative and Tobacco screening negative) 05/20/2024 Telephone [facility] [address] [place] [address] Vic Antonio MD Chart Prep 04/27/2024 Orders Only [facility] [address] [place] [phone] Vic Antonio MD from Last 3 Months Immunizations Name Administration Dates Next Due Influenza High-dose Quadriva lent Preservative Free 12/27/2022,01/02/2022,12/28/2020 Influenza Quadrivalent Adjuvanted 12/26/2019 Influenza injectable quadriv alent preservative free 01/02/2017,12/28/2014 Influenza, High Dose Seasona l, Preservative Free 01/27/2024,12/14/2015 Influenza, Split (incl. dylon fied surface antigen) 01/28/2012 Influenza, Unspecified 01/02/2022,12/28/2020 Influenza, seasonal, injecta ble, preservative free 11/29/2014 Influenza, trivalent, adjuvanted 01/06/2018 Pfizer Covid-19 Vaccine 12+ 01/27/2024, 3 Pneumococcal Conjugate PCV 13 09/12/2015 Pneumococcal Polysaccharide PPSV23 05/19/2013,,06/26/2005 TD (adult), 2 Lf tetanus tox oid, preservative free, adsorbed 09/23/2023,06/26/2005 Tdap 05/19/2013 Zoster, live 12/15/2014 Social History Tobacco Use Types Packs/Day Years Used Date Smoking Tobacco: Never Passive Smoke Exposure: Never Smokeless Tobacco: Never Tobacco Cessation:Counseling Given: Not Answered Alcohol Use Standard Drinks/Week Comments Defer 0 (1 standard drink = 0.6 oz pur e alcohol) Alcohol Answer Date Recorded Frequency of Alcohol Consumption Not on file 09/23/2023 Average Number of Drinks Not on file 024 Frequency of Binge Drinking Not on file 04/2023 Score 0 09/23/2023 Depression Answer Date Recorded Patient Health Questionnaire-9 Score 2 06/03/2024 Patient Health Questionnaire-9 Score 2 06/03/2024 Last PHQ-9: Questionnaire Data Not on file 0 06/03/2024 Housing Stability Answer Date Recorded What is [...] Date Recorded Patient Health Questionnaire-2 Score 0 06/03/2024 Internet Access Answer Date Recorded Internet Access Q1 Yes 01/15/2024 Internet Access Q2 I do not want or need it 12/23 Comments Unknown Sex and Gender Information Value Date Recorded Sex Assigned at Female 01/21/2022 10:17 AM EDT Legal Sex Female 10:17 AM EDT Gender Identity Female 01/21/2022 10:17 AM EDT Sexual Orientation Straight 01/21/2022 10 :17 AM EDT Last Filed Vital Signs Vital Sign Reading Time Taken Comments Blood Pressure 138/78 06/03/2024 9:07 AM EDT Pulse 60 06/03/2024 8:47 AM EDT Temperature 36.1 ??C (96.9 ??F) 06/03/2024 8:47 AM ED T Respiratory Rate 20 06/03/2024 8:47 AM EDT Oxygen Saturation 98% 06/03/2024 8:47 AM EDT Inhaled Oxygen Concentration - - Weight 46.2 kg (101 lb 12.8 oz) 06/03/2024 8:47 AM EDT Height 152.4 cm (5') 06/03/2024 8:47 AM EDT Body Mass Index 19.88 06/03/2024 8:47 AM EDT Plan of Treatment Upcoming Encounters Date Type Department Care Team (Late st Contact Info) Description 07/27/2024 9:00 AM EDT Office Visit [facility] [address], [place] [phone] Alvarez Knowles DDS [address], [place] [phone] Health Maintenance Due Date Last Done Comments Derm Melanoma Skin Check 03/19/1941 Diabetes: Foot Exam 1952 Eye Exam 1950 Zoster Vaccines (2 of 3) 02/09/2015 12/15/2014 RSV Patients and Patients Aged 60 years or older (1 - 1-dose 75+ series) 2017 Dental X-Ray: Bitewings 08/02/2022 08/02/19 22, 08/29/2017, 04/30/2016, Additional history exists Dental Prophylaxis 01/25/2024 07/24/2023, 0 08/01/2021, 05/27/2019, Additional history exists Dental Oral Exam 02/08/2024 08/07/2023, 03/2018, 08/29/2017, Additional history exists Lipid Panel 07/07/2024 07/08/2023, 09/21, 11/13/2021, Additional history exists Dental X-Ray: Full Mouth 08/02/2024 08/01/2021, 09/2016 Alcohol/Substance Use Screening 09/22/2024 09/23/2023 Diabetes: Hemoglobin A1C 12/04/2024 025, 01/27/2024, 09/23/2023, Additional history exists Mammogram 04/27/2025 04/27/2024, 03/26, 04/16/2022, Additional history exists SDOH Screening 05/24/2025 05/24/2024 Depression Screening 06/03/2025 06/03/2024, 06/04/19 25 Tobacco Screening 06/03/2025 06/03/2024 DTaP/Tdap/Td Vaccines (3 - Td or Tdap) 09/22/2033 09/23/2023, 05/19/2013, 06/26/2005 Pneumococcal Vaccine: 50+ Years Completed 09/12/2015, 05/19/2013, 05/06/2013, Additional history exists COVID-19 Vaccine Completed 01/27/2024, 08/2022, 02/12/2022, Additional history exists Influenza Vaccine Completed 01/27/2024, , 01/02/2022, Additional history exists HIB Vaccines Aged Out No longer eligi ble based on patient's age to complete this topic HPV Vaccines Aged Out No longer eligi ble based on patient's age to complete this topic Hepatitis A Vaccines Aged Out No long er eligible based on patient's age to complete this topic Hepatitis B Vaccines Aged Out No long er eligible based on patient's age to complete this topic IPV Vaccines Aged Out No longer eligi ble based on patient's age to complete this topic Meningococcal Vaccine Aged Out No willie robin eligible based on patient's age to complete this topic RSV under 20 months Aged Out No longe r eligible based on patient's age to complete this topic Rotavirus Vaccines Aged Out No longer eligible based on patient's age to complete this topic Goals Goal Patient Goal Type Associated Problems Recent Progress Patient-Stated? Author Blood Pressure < 140/90 Blood Pressure 138/78(2024 9:07 AM EDT) No Raphael Brewster Hemoglobin A1c < 7.5 Result Component 6.9( 9:04 AM EDT) No Raphael Brewster Procedures Procedure Name Priority Date/Time Associated Diagnosis Comments POCT GLYCATED HEMOGLOBIN, TOTAL Routine 06/03/2024 9:04 AM EDT Type 2 diabetes mellitus with stage 3a chronic kidney disease, without long-term current use of insulin ([facility]) POCT GLUCOSE Routine 06/03/2024 8:57 AM EDT Type 2 diabetes mellitus with stage 3a chronic kidney disease, without long-term current use of insulin ([facility]) BI MAMMOGRAM SCREENING TOMOSYNTHESIS BILATERAL Routine 04/27/2024 8:30 AM EST PERIODIC ORAL EVALUATION - ESTABLISHED PATIENT Routine 08/07/2023 1:30 PM EDT Dental caries Periodontal disease Malocclusion Full PROPHYLAXIS - ADULT Routine 07/24/2023 8:00 AM EDT Dental plaque Dental calculus LIPID PANEL WITH REFLEX TO DIRECT LDL Routine 07/08/2023 8:47 AM EDT Essential hypertension INTRAORAL - COMPLETE SERIES OF RADIOGRAPHIC IMAGES Routine 08/01/2021 12:00 AM EDT from Last 3 Months or Most Recently Relevant to Health Maintenance Results * (ABNORMAL) POCT HGB A1C (06/03/2024 9:04 AM EDT) Hemoglobin A1C 6.9(A) 4.0 - 6.0 % QC Media Lot # [id number] Lot# Expiration Date 1016,[id number] Blood 06/03/2024 9:04 AM EDT us Vic Singh MD POINT OF CARE TEST EN TER/EDIT ORDERABLES Final Result * POCT Glucose (06/03/2024 8:57 AM EDT) Glucose Blood, POC 146 60 - 200 mg/dL QC Media Lot # [id number] Lot# Expiration Date [id number] Blood Capillary blood specimen / Unknown 06/03/2024 8:57 AM EDT us Vic Singh MD POINT OF CARE TEST EN TER/EDIT ORDERABLES Final Result * BI Mammogram Screening Tomosynthesis Bilateral (04/27/2024 8:30 AM EST) Anatomical Region Laterality Modality Breast Bilateral Mammography 04/27/2024 8:30 AM EST Narrative 05/03/2024 5:09 PM EST ? [facility] ? [address] [place] [address] ? Mammography Report ? Signed ? Patient: Arce,Salvadora ?MR#: [id number] ?? [id number] ? : 1940 ?Acct:[id number] ? Age/Sex: 83 / F ?ADM Date: 04/27/24 ? Loc: HO.MAMMO ? Attending Dr: Vic Cortez MD ? Ordering Physician: Vic Cortez MD ?Resu ?? lts: 1Negative ? Date of Service: 04/27/24 ?Follow Up: 1 Year From Orig ?? inal Mammogram ? Procedure(s): MM tomosynthesis screening BI ?? Accession Number(s): [id number] ? cc: Vic Cortez MD ? EXAMINATION: ?? MM SCREENING DIGITAL BREAST TOMOSYNTHESIS, BILATERAL ? CLINICAL INFORMATION: ? Screening. Asymptomatic. ? COMPARISON: ?? Mammography: Comparison is made with available priors ? TECHNIQUE: ?? Digital breast mammography with tomosynthesis is performed in both the ?? craniocaudal and mediolateral oblique views along with computer-aided ?? detection (CAD). ? FINDINGS: ?? There are scattered areas of fibroglandular density (ACR BI-RADS breast ?? composition Category b). ? There are no significant masses, abnormal calcifications, or other ?? abnormalities. ? MM/MM tomosynthesis screening BI ?? IMPRESSION: ?? No mammographic evidence of malignancy. ? ASSESSMENT: ? BI-RADS BI-RADS 1 - Negative ? RECOMMENDATION: ?? Routine annual mammography screening. ? 1 year F/U ? This examination should not preclude the clinical evaluation of a ?? suspicious palpable abnormality. ? This patient's information was entered into a reminder system with a ?? target due date for their next mammogram. ? Electronically signed by: ??Alyson Chowdhury DO ??05/03/2024 05:06 PM EST ? Dictated By: ?Alyson Chowdhury DO ? Signed By: ?<Electronically signed by Alyson Chowdhury, DO in OV> ? 05/03/24 1706 ? DD/ 0830 ? TD/TT: 04/27/24 0845 ? Glassware Finisher: ? Procedure Note Cassie, Image - 05/03/2024 [place] [facility] [address] [place] [address] Mammography Report Signed Patient: Aviva Arce#: [id number] : 3Acct:[id number] Age/Sex: 83 / FADM Date: 04/27/24 Loc: HO.MAMMO Attending Dr: Vic Cortez MD Ordering Physician: Vic Cortez MDResu lts: 1Negative Date of Service: 04/27/24Follow Up: 1 Year From Orig inal Mammogram Procedure(s): MM tomosynthesis screening BI Accession Number(s): [id number] cc: Vic Cortez MD EXAMINATION: MM SCREENING DIGITAL BREAST TOMOSYNTHESIS, BILATERAL CLINICAL INFORMATION: Screening. Asymptomatic. COMPARISON: Mammography: Comparison is made with available priors TECHNIQUE: Digital breast mammography with tomosynthesis is performed in both the craniocaudal and mediolateral oblique views along with computer-aided detection (CAD). FINDINGS: There are scattered areas of fibroglandular density (ACR BI-RADS breast composition Category b). There are no significant masses, abnormal calcifications, or other abnormalities. MM/MM tomosynthesis screening BI IMPRESSION: No mammographic evidence of malignancy. ASSESSMENT: BI-RADS BI-RADS 1 - Negative RECOMMENDATION: Routine annual mammography screening. 1 year F/U This examination should not preclude the clinical evaluation of a suspicious palpable abnormality. This patient's information was entered into a reminder system with a target due date for their next mammogram. Electronically signed by: Alyson Chowdhury DO 05/03/2024 05:06 PM [facility] [place] [place] Dictated By: Alyson Chowdhury DO Signed By: <Electronically signed by Alyson Chowdhury DO in OV> 05/03/24 1706 DD/ 9 TD/TT: 04/27/24 0845 Glassware Finisher: us Vic Singh MD IMG BI PROCEDURES Fin al Result * Lipid Panel with Reflex to Direct LDL (07/08/2023 8:47 AM EDT) Triglycerides 94 <150 mg/dL [facility] Comment:Desirable Triglyceri de: less than 150 mg/dLBorderline High Triglyceride 150-199 mg/dLHigh Triglyceride: 200-499 mg/dLVery High Triglyceride: greater than or equal to 5OO mg/dL Cholesterol 144 <200 mg/dL [facility] Comment:Desirable Cholestero l: less than 200 mg/dLBorderline High Cholesterol: 200-239 mg/dLHigh Cholesterol: greater than 239 mg/dL LDL Cholesterol Calculated 76 <100 mg/dL [facility] Comment:Desirable LDL: less than 100 mg/dLNear Optimal/Above Optimal LDL: 110- 129 mg/dLBorderline High LDL: 130-159 mg/dLHigh LDL: 160-189 mg/dLVery High LDL: greater than or equal to 190 mg/dL HDL Cholesterol 50 >40 mg/dL [facility] Comment:Desirable HDL: great er than 40 mg/dL Note: This HDL assay may give artificially low results in patients with liver disease. Blood 07/08/2023 8:47 AM EDT 07/08/2023 11:26 AM EDT Vic Singh MD LAB BLOOD ORDERABLES Final Result [facility] [address] [place] [address] [phone] from Last 3 Months or Most Recently Relevant to Health Maintenance Insurance MEDICARE [facility] FULL [facility] STANDARD D[facility] - HSN FULL (MEDICAID) Care Teams Bakery Worker Relationship Specialty Start Date End Date Vic Antonio MD [address] [place] [id number] PCP - General Internal Medicine 11/08/13
--- OUTSIDE RECORDS SUMMARY | 2024-06-22 08:46 | XMS_ITS | Encounter Summary ---
Author Organization [employer] [facility] Address [address] [facility] [address] [place] [address] Care Team Providers Care Seed District Sales Manager Name Role Phone Vic Antonio MD Primary Care Provide r Encounter Details Date Type Department Care Team (Latest Contact Info) Description 11/24/2018 Abstract [facility] CONVERSIONS Dental, Provider, DDS Social History [...] Description 07/27/2024 9:00 AM EDT Office Visit [facility] ADULT DENTAL [address] [place] [address] Alvarez Knowles DDS [address] [place] [address] documented as of this encounter Visit Diagnoses Not on filedocumented in this encounter Care Teams Seed District Sales Manager Relationship Specialty Start Date End Date Vic Antonio MD [address] [place] [address] PCP - General Internal Medicine 11/08/13 documented as of this encounter
--- OUTSIDE RECORDS SUMMARY | 2024-06-22 08:46 | XMS_ITS | Encounter Summary ---
Author Organization [facility] Address [address] [facility] [address] [place] [address] Phone Care Team Providers Care Pipe Caulker Name Role Phone Unavailable Primary Care Provider Unavailabl e Reason for Visit * Reason Comments Med Refill Encounter Details Date Type Department Care Team (Late Contact Info) Description 12/04/2020 Refill [facility] [address] [facility] [address] [place] [address] Regianldo Nolan MD [address] [facility] [address] [place] [address] Social History Tobacco Use Types Packs/Day Years [...] on file documented as of this encounter Miscellaneous Notes * Telephone Encounter - Reginaldo Nolan MD - 12/05/2020 1:11 PM EDT Needs f/u in 5-6 weeks with me 1. tell them I sent rx but no refils 2. They must see me or have a telehealth visit with me before I can renew it again 3. when u call them be sure to make the f/u appt at the same time u inform them th rx was sent by me documented in this encounter Plan of Treatment Upcoming Encounters Date Type Department Care Team (Late Contact Info) Description 12/20/2024 1:15 PM EDT Office Visit [facility] [address] [place] [phone] Reginaldo Nolan MD [address] [facility] [address] [place] [address] documented as of this encounter Visit Diagnoses Not on filedocumented in this encounter
--- OUTSIDE RECORDS SUMMARY | 2024-06-22 08:46 | XMS_ITS | Encounter Summary ---
Author Organization [employer] Address [address] [place] [address] Care Team Providers Care Bi Lead Name Role Phone Vic Antonio MD Primary Care Provide r Encounter Details Date Type Department Care Team (Late Contact Info) Description 01/28/2024 Orders Only [facility] [address] [place] [address] ProviderKianna MD Social History Tobacco Use Types Packs/Day Years [...] Description 07/27/2024 9:00 AM EDT Office Visit [facility] ADULT DENT[facility] [address] [place] [address] Alvarez Knowles DDS [address] [place] [address] documented as of this encounter Goals Goal Patient Goal Type Associated Problems Recent Progress Patient-Stated? Author Blood Pressure < 140/90 Blood Pressure 138/78(2024 9:07 AM EDT) No Raphael Brewster Hemoglobin A1c < 7.5 Result Component 6.9( 9:04 AM EDT) No Raphael Brewster documented as of this encounter Procedures Procedure Name Priority Date/Time Associated Diagnosis Comments DERMATOPATHOLOGY REPORT Routine 12/17/19 11:47 AM EDT documented in this encounter Results * Dermatopathology Report (12/17/2023 11:47 AM EDT) us Historical Provider LAB BLOOD ORDERABLES Josseline l Result documented in this encounter Visit Diagnoses Not on filedocumented in this encounter Additional Health Concerns Assessment Noted Time PHQ-9 Depression Total Score: 2 07/01/19 9:54 AM EDT documented as of this encounter Care Teams Bi Lead Relationship Specialty Start Date End Date Vic Antonio MD [address] [place] [id number] PCP - General Internal Medicine 11/08/13 documented as of this encounter
--- OUTSIDE RECORDS SUMMARY | 2024-06-22 08:46 | XMS_ITS | Encounter Summary ---
Author Organization [facility] Address [address] [facility] [address] [place] [address] Phone Care Team Providers Care Proof Coin Collector Name Role Phone Unavailable Primary Care Provider Unavailabl e Reason for Visit * Reason Comments Med Refill Encounter Details Date Type Department Care Team (Late Contact Info) Description 09/08/2022 Refill [facility] [address] [place] [phone] Kristian Gibbons MD Stage 3a chronic kidney disease (HCC); Hypertensive chronic kidney disease Social History Tobacco Use Types Packs/Day Years [...] Upcoming Encounters Date Type Department Care Team ([facility] Contact Info) Description 12/20/2024 1:15 PM EDT [facility] Visit [facility] [address] [place] [phone] Reginaldo Nolan MD [address] [facility] [address] [place] [phone] documented as of this encounter Visit Diagnoses Diagnosis Stage 3a chronic kidney disease (HCC) Hypertensive chronic kidney disease documented in this encounter
[2024-06-22 11:44] LABS: Anion Gap 13 (12-20); Blood Urea Nitrogen 32 mg/dL (9-16); Calcium 9.7 mg/dL (8.4-10.2); Carbon Dioxide 27 mmol/L (22-29); Chloride 106 mmol/L (96-108); Cholesterol 139 mg/dL (<200); Estimated Glomerular Filt Rate 49; Glucose Random 109 mg/dL (60-115); HDL Cholesterol 49 mg/dL (>40); LDL Cholesterol Calculated 70 mg/dL (<100); Sodium 142 mmol/L (135-145); Triglycerides 101 mg/dL (<150)
[2024-06-22 11:56] LABS: Creatinine Urine 97.76 mg/dL; Microalbum/Creatinine Ratio Ur 61.3 ug/mg cr (<30)
== END 2024-06-22 08:31 | disposition home or self-care (01) ==
LOC: HO.HHCL 08:30
PROVIDERS: Visit Provider Internal Medicine
DX: I12.9 Hypertensive chronic kidney disease with stage 1 through stage 4 chronic kidney disease, or unspecified chronic kidney disease (principal); E11.22 Type 2 diabetes mellitus with diabetic chronic kidney disease; N18.31 Chronic kidney disease, stage 3a; E78.00 Pure hypercholesterolemia, unspecified
CPT/HCPCS: 36415; 80048; 80061; 82043; 82570